=== PATIENT | female | born 1980 | race Caucasian/White ===

== ENCOUNTER 2021-05-01 12:32 | Outpatient (CLI) | payer OTHER, SELFPAY ==
--- NOTE | 2021-05-01 12:43 | XR_ITS ---
WS: [id number] XR chest 2V* [id number] REASON FOR EXAM: BRONCHITIS,CHRONIC/ SINUSITIS FINDINGS: The heart and mediastinum are within normal limits. Calcified granulomatous disease is present bilaterally. No active pulmonary parenchymal or pleural disease is noted. No significant abnormality of the bony thorax. XR/XR chest 2V* [id number] IMPRESSION: No acute chest abnormality.
== END 2021-05-01 12:33 | disposition home or self-care (01) ==
PROVIDERS: PCP Electrodiagnostic Medicine; Visit Provider Electrodiagnostic Medicine
DX: J42 Unspecified chronic bronchitis (principal); J32.9 Chronic sinusitis, unspecified
CPT/HCPCS: 71046